=== PATIENT | female | born 1995 | race Two or more races ===

== ENCOUNTER 2017-01-03 00:47 | Inpatient (IN) | payer OTHER ==
[~2017-01-03] VITALS: Ht 160 cm; Wt 82.0 kg
[2017-01-03] VITALS (10 sets, daily range): BP systolic 103–131; BP diastolic 56–77
[2017-01-03 01:51] LABS: MEAN CORPUSCULAR HEMOGLOBIN 30.3 pg (27.0-33.0); MEAN CORPUSCULAR HGB CONC 35.7 g/dl (32.0-36.5); MEAN CORPUSCULAR VOLUME 84.9 fl (80.0-96.0); RED CELL DISTRIBUTION WIDTH 12.7 % (11.5-14.5); WHITE BLOOD COUNT 11.9 K/mm3 (4.0-10.0)
[2017-01-03] MEDS: LR 1,000 ML IV SCH ×3 (02:25→22:44)
[2017-01-03] MEDS ORDERED: miSOPROStol 50 MCG 1/2 TAB (S0191) PO ONE (02:30)
[2017-01-03] MEDS ORDERED: miSOPROStol 50 MCG 1/2 TAB (S0191) As Ordered ONE (02:36)
--- NOTE | 2017-01-03 07:33 | HPE ---
DATE OF ADMISSION: 01/03/2017 HISTORY: This lady is 21-year-old, 2, para 1, last menstrual period (LMP) 03/20/2016, expected date of confinement (EDC) of 12/25/2016 at 41 and 2 weeks of gestation for induction of labor. PAST HISTORY: In 2013, at 38 weeks, 7 pound female, vaginal delivery with epidural. LABORATORIES: O negative. HIV negative. Hepatitis negative. RPR negative. Rubella immune. Varicella immune. Urine negative. Gonorrhea and chlamydia negative. 1-hour glucose 100. GBS is negative. ON EXAMINATION: No distress. Symphysis fundus height is 40, vertex, occiput anterior (OA), posterior, 1 cm thick, -3 station. Four quadrant bowel sounds are noted. Temperature is 98.1. Blood pressure 131/77. Respirations 18. Pulse 108. Urine 1.005, pH 7, +1 leukocyte esterase, the rest is negative. She has a category one strip. Atraumatic. Neck full range of motion. Pupils equal and reactive to light. Distal pulses symmetric. No evidence of deep vein thrombosis (DVT), pulmonary embolus (PE) or superficial phlebitis. Chest is clear bilaterally to bases. No wheezes or rhonchi. No costovertebral angle (CVA) tenderness. Appropriate symphysis fundus height and nontender relaxed uterus between contractions. She has no rashes, lesions or pruritus. No arthralgia or myalgia. No complaints of cough, wheeze, shortness of breath or dyspnea on exertion. No chest pain. No bleeding. Neuro complete. No incontinency or frequency. No nausea, vomiting, diarrhea or constipation. No diabetic issues. 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 PAST MEDICAL HISTORY AND SURGICAL HISTORY: Unremarkable. FAMILY HISTORY: Noncontributory. She does not smoke, drink or abuse drugs. There is no domestic violence. 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 IN SUMMARY, we have a post age gestation for induction of labor with Cytotec and epidural on a as needed basis. We explained the plan of care to her and her . They agree and expressed understanding of the plan of management.
[2017-01-03] MEDS: miSOPROStol 50 MCG 1/2 TAB (S0191) PO SCH ×3 (08:56→21:03)
--- NOTE | 2017-01-03 12:23 | IPNPDOC ---
Text Note Date of Service The patient was seen on 01/03/17. NOTE SBAR from Dr Palacios at ~730 IOL for postdates NST Cat 1, irreg ctx's, not very painful Cx unchanged, 1/thick/high Plan for continued miso q 4 hrs 50 mcg PO and with next check (likely tonight sometime) will place a FB Sessions MD MEJIA,Hever, I+O VSHever I+O Laboratory Tests 01/03/17 01:40 Red Blood Count 4.38, Mean Corpuscular Volume 84.9, Mean Corpuscular Hemoglobin 30.3, Mean Corpuscular Hemoglobin Concent 35.7, Red Cell Distribution Width 12.7 Vital Signs Date Time Temp Pulse Resp B/P (MAP) Pulse Ox O2 Delivery O2 Flow Rate FiO2 01/03/17 01:08 98.1 108 18 131/77 (95) SESSIONS,WESTON Kenney MD Jan 03, 2017 12:23
--- NOTE | 2017-01-03 23:55 | IPNPDOC ---
Text Note Date of Service The patient was seen on 01/03/17. NOTE S/P 2 more doses cytotec, 1700 (was several hrs late due to busy floor on day shift), 2100. NST Cont's to be Cat 1, irreg ctx's that the pt is not feeling horribly yet. Cx loose 1cm/50/-3, FB placed Will get 0100 dose cytotec Plan on recheck a few hours after FB comes out Sessions VS,Hever, I+O VSHever I+O Laboratory Tests 01/03/17 01:40 Red Blood Count 4.38, Mean Corpuscular Volume 84.9, Mean Corpuscular Hemoglobin 30.3, Mean Corpuscular Hemoglobin Concent 35.7, Red Cell Distribution Width 12.7 Vital Signs Date Time Temp Pulse Resp B/P (MAP) Pulse Ox O2 Delivery O2 Flow Rate FiO2 01/03/17 22:00 97.0 01/03/17 21:58 71 104/59 (74) 01/03/17 16:17 18 SESSIONS,WESTON Kenney MD Jan 03, 2017 23:55
[2017-01-04] VITALS (53 sets, daily range): BP systolic 88–137; BP diastolic 51–84
[2017-01-04] MEDS: miSOPROStol 50 MCG 1/2 TAB (S0191) PO SCH (01:25)
[2017-01-04] MEDS ORDERED: FENTANYL 2MCG/ML ROPIVACAINE 0.2% IN 0.9% NACL 200ML IVBAG As Ordered ONE (07:21)
--- NOTE | 2017-01-04 07:25 | IPNPDOC ---
Text Note Date of Service The patient was seen on 01/04/17. NOTE NST Cat 1, FB came out 0500 Cx /-2 Will transition to pitocin and eventual epidural SBAR to Dr Stephany naik Sessions VS,Hever, I+O VSHever I+O Vital Signs Date Time Temp Pulse Resp B/P (MAP) Pulse Ox O2 Delivery O2 Flow Rate FiO2 01/04/17 06:57 88 130/78 (95) 01/03/17 22:00 97.0 01/03/17 16:17 18 SESSIONS,WESTON Kenney MD Jan 04, 2017 07:25
[2017-01-04] MEDS ORDERED: LR 1,000 ML IV SCH (07:56)
[2017-01-04] MEDS ORDERED: OXYTOCIN DRIP 30 UNITS in APPROPRIATE DILUENT 1 EA IV SCH ×2 (08:00→15:23)
[2017-01-04] MEDS ORDERED: RHOGAM 300 MCG (1500 IU) INJ (J2790) IM SCH (09:00)
[2017-01-04] MEDS: PRENATAL VITAMINS CHEWABLE TABLET PO SCH (09:00)
[2017-01-04] MEDS ORDERED: MEASLES,MUMPS,RUBELLA VACCINE INJ (MMR-II) (90707) SC SCH (09:00)
[2017-01-04] MEDS ORDERED: LACTATED RINGER'S 1000 ML IV PRN (09:15)
[2017-01-04] MEDS ORDERED: EPIDURAL COMMENT XX SCH (09:15)
[2017-01-04] MEDS ORDERED: REFRIGERATOR IV KEYS XX PRN (09:15)
[2017-01-04] MEDS ORDERED: ONDANSETRON 4MG/2ML VIAL (J2405) IV PRN ×2 (09:15→15:30)
[2017-01-04] MEDS ORDERED: EPIDURAL/PCA KEYS XX PRN (09:15)
[2017-01-04] MEDS ORDERED: NALOXONE INJ 0.4 MG/1 ML VIAL (J2310) IV PRN (09:15)
[2017-01-04] MEDS ORDERED: diphenhydrAMINE INJ 50MG/ML VIAL (J1200) IV PRN (09:15)
[2017-01-04] MEDS ORDERED: FENTANYL/ROPIVACAINE/NACL BAG 200 ML EPIDURAL SCH (09:15)
[2017-01-04] MEDS: ePHEDrine SULFATE 25 MG/5 ML(5MG/ML) SYRINGE IV PRN ×3 (09:44→10:33)
[2017-01-04] MEDS ORDERED: ACETAMINOPHEN 500 MG TAB PO PRN (15:30)
[2017-01-04] MEDS ORDERED: DIBUCAINE 1% OINTMENT 30GM TOP PRN (15:30)
[2017-01-04] MEDS ORDERED: METHYLERGONOVINE MALEATE 0.2 MG/ML VIAL (J2210) IM PRN (15:30)
[2017-01-04] MEDS ORDERED: PROMETHAZINE 25 MG TAB PO PRN (15:30)
[2017-01-04] MEDS: DOCUSATE SODIUM 100 MG CAP PO PRN (22:08)
[2017-01-05] MEDS: IBUPROFEN 800 MG TAB PO PRN ×3 (00:07→20:20)
[2017-01-05 06:00] VITALS: BP 105/54
[2017-01-05] MEDS: PRENATAL VITAMINS CHEWABLE TABLET PO SCH (10:15)
[2017-01-05 18:00] VITALS: BP 112/56
[2017-01-05] MEDS: DOCUSATE SODIUM 100 MG CAP PO PRN (18:32)
[2017-01-06 06:17] VITALS: BP 119/66
[2017-01-06] MEDS: PRENATAL VITAMINS CHEWABLE TABLET PO SCH (09:52)
[2017-01-06] MEDS ORDERED: PRENTAB9 PO (11:27)
[2017-01-06] MEDS ORDERED: ACET50TA PO (11:28)
[2017-01-06] MEDS ORDERED: IBUP200T45 PO (11:29)
--- NOTE | 2017-01-06 15:56 | DSES ---
DATE OF ADMISSION: 01/03/2017 DATE OF DISCHARGE: 01/06/2017 This lady is a 21-year-old, 2 now para 2 admitted for induction of labor at 41-2/7 weeks of gestation. She had a spontaneous vaginal delivery with epidural of live male infant weighing 7 pounds 9 ounces, 3430 grams, scores of 9 and 9 at 1 and 5 minutes, respectively. On her second day, we discussed phlebitis, cystitis, mastitis, endometritis and cellulitis, diet, exercise, pain management, perineal, breast and wound care. She is not certain what she wants to do for control and will discuss this at her 6-week checkup. On discharge, hemoglobin 13.3, hematocrit 37.2 and platelets are 237. Her blood pressure is 119/66, respirations 20, pulse 84, temperature 98.5. The rest of the examination is unremarkable. She is normocephalic, atraumatic. Neck full range of motion. Pupils equal and reactive to light. Distal pulses are symmetric. No evidence of DVT, PE or superficial phlebitis. Chest is clear bilaterally to bases. No wheezes or rhonchi. No CVA tenderness. Uterus is two below. Lochia is moderate. Four quadrant bowel sounds are noted. Her first degree repair is healing well. No rashes, lesions or pruritus. No arthralgia, myalgia. No complaints of cough, wheezes, shortness of breath or dyspnea on exertion. No chest pain, not bleeding. Neurologically complete. No incontinence, urgency or frequency. No nausea, vomiting, diarrhea or constipation. No diabetic issues. 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 Past history, surgical or medical, is noncontributory, as is family history. She does not smoke or drink or abuse drugs. She is . There is no domestic violence. In summary we have a 21-year-old, 2 now para 2 admitted for induction of labor at 41-2/7, successful delivery live male infant, discharged with medications. Followup in six weeks' time. All questions were answered.
== END 2017-01-06 12:05 | disposition home or self-care (01) | DRG 775 ==
LOC: M LDI 00:47 → M OBS 01-04 17:38
PROVIDERS: ADMIT Obstetrics & Gynecology; ATTEND Obstetrics & Gynecology
PROC: 3E0DXGC Introduction of Other Therapeutic Substance into Mouth and Pharynx, External Approach (ICD-10-PCS; 2017-01-03)
PROC: 10E0XZZ Delivery of Products of Conception, External Approach (ICD-10-PCS; principal; 2017-01-04)
PROC: 0HQ9XZZ Repair Perineum Skin, External Approach (ICD-10-PCS; 2017-01-04)
DX: O48.0 Post-term pregnancy (principal); Z37.0 Single live birth; Z3A.41 41 weeks gestation of pregnancy; O70.0 First degree perineal laceration during delivery

== ENCOUNTER 2018-02-11 19:40 | Emergency (ER) | payer OTHER ==
[2018-02-11 21:53] LABS: BASO # 0.1 10^3/uL (0.0-0.2); BASO % 0.6 % (0.0-1.0); EOS # 0.2 10^3/uL (0.0-0.50); EOS % 1.9 % (0.0-3.0); HEMATOCRIT 44.1 % (36.0-47.0); HEMOGLOBIN 15.3 g/dl (12.0-15.5); IMMATURE GRANULOCYTE % 0.3 % (0-3.0); LYMPH # 3.2 10^3/uL (1.5-6.5); LYMPH % 34.5 % (24.0-44.0); MEAN CORPUSCULAR HEMOGLOBIN 29.4 pg (27.0-33.0); MEAN CORPUSCULAR HGB CONC 34.7 g/dl (32.0-36.5); MEAN CORPUSCULAR VOLUME 84.6 fl (80.0-96.0); MONO # 0.7 10^3/uL (0.0-0.8); NEUTROPHILS # 5.2 10^3/uL (1.8-7.7); NEUTROPHILS % 55.7 % (36.0-66.0); PLATELET COUNT, AUTOMATED 314 10^3/uL (150-450); RED BLOOD COUNT 5.21 10^6/uL (4.00-5.40); RED CELL DISTRIBUTION WIDTH 12.2 % (11.5-14.5); WHITE BLOOD COUNT 9.4 10^3/uL (4.0-10.0)
[2018-02-11 21:58] LABS: KETONE, URINE AUTO RFX NEGATIVE (NEGATIVE); LEUKOCYTE ESTERASE UR AUTO RFX NEGATIVE (NEGATIVE); MUCUS, URINE RFX SMALL (NEGATIVE); NITRITE, URINE AUTO RFX NEGATIVE (NEGATIVE); RBC, URINE AUTO RFX TNTC /HPF (0-3); SPECIFIC GRAVITY UR AUTO RFX 1.011 (1.002-1.035); SQUAM EPITHELIAL CELL UR AURFX 1 /HPF (0-6); WBC, URINE AUTO RFX 3 /HPF (0-3)
[2018-02-11 22:28] LABS: ALBUMIN/GLOBULIN RATIO 1.21 (1.00-1.93); ALKALINE PHOSPHATASE 91 U/L (45-117); ALT/SGPT 21 U/L (12-78); ANION GAP 8 MEQ/L (8-16); AST/SGOT 15 U/L (7-37); BILIRUBIN,DIRECT 0.1 MG/DL (0.0-0.2); BILIRUBIN,TOTAL 0.3 MG/DL (0.2-1.0); BLOOD UREA NITROGEN 12 MG/DL (7-18); CARBON DIOXIDE LEVEL 27 MEQ/L (21-32); CHLORIDE LEVEL 106 MEQ/L (98-107); CREATININE FOR GFR 0.81 MG/DL (0.55-1.30); FREE T4 1.08 NG/DL (0.76-1.46); GLOMERULAR FILTRATION RATE > 60.0 (>60); GLUCOSE, FASTING 82 MG/DL (70-100); POTASSIUM SERUM 4.1 MEQ/L (3.5-5.1); SODIUM LEVEL 141 MEQ/L (136-145); TOTAL PROTEIN 7.3 GM/DL (6.4-8.2)
[2018-02-11 23:30] LABS: CHLAMYDIA DNA AMPLIFICATION NEGATIVE (NEGATIVE); GC DNA AMPLIFICATION NEGATIVE (NEGATIVE)
== END 2018-02-11 22:56 | disposition home or self-care (01) ==
LOC: M ED 19:40
DX: N93.8 Other specified abnormal uterine and vaginal bleeding (principal); Z97.5 Presence of (intrauterine) contraceptive device; M54.5 Low back pain; E03.9 Hypothyroidism, unspecified; Z79.899 Other long term (current) drug therapy
CPT/HCPCS: 76856

== ENCOUNTER 2018-04-01 19:20 | Emergency (ER) | payer OTHER ==
[2018-04-01 20:03] LABS: CONTROL LINE UCG INT CTR LINE PRESENT; URINE PREG TEST NEGATIVE (NEGATIVE)
[2018-04-01] MEDS: ONDANSETRON 4 MG ORAL DISINTEGRATING TAB (Q0162 PER 1MG) PO (20:30)
== END 2018-04-01 20:37 | disposition home or self-care (01) ==
LOC: M ED 19:20
DX: A05.9 Bacterial foodborne intoxication, unspecified (principal); E03.9 Hypothyroidism, unspecified; Z79.899 Other long term (current) drug therapy
CPT/HCPCS: Q0162